=== PATIENT | female | born 1995 | race African-American/Black ===

== ENCOUNTER 2016-04-02 18:08 | Emergency (ER) | payer OTHER ==
[2016-04-02] MEDS ORDERED: LIDOCAINE 1% MDV 20ML VIAL As Ordered ONE (21:29)
[2016-04-02] MEDS ORDERED: ACETAMINOPH W/CODEINE #3 TAB UD As Ordered ONE (21:29)
--- NOTE | 2016-04-02 22:04 | EDDOCDS ---
Physician Documentation [facility] Name: Melissa Avina Age: 21 yrs Sex: Female : 1995 Arrival Date: 04/02/2016 Time: 18:08 Bed I6 / 28 Private MD: Other - Complete Info On Cds Disposition: 04/02/16 21:51 Discharged to Home/Self Care. Impression: Other bursitis of knee, left knee - WITH INFECTION. - Condition is Stable. - Discharge Instructions: Bursitis. - Medication Reconciliation, Local Pharmacy Hours form. - Follow up: Kaden Harris [facility]; When: Tomorrow; Reason: Recheck today's complaints, Continuance of care. - Problem is new. - Symptoms have improved. - Notes: CONTINUE WITH THE BACTRIM AND TRAMADOL, FOLLOW UP INSTRUCTED BY DR JOHNSON Historical: - Allergies: no known allergies; - Home Meds: 1. tramadol 50 mg Oral tab 1 tab 8 hours 2. Bactrim DS 800-160 mg Oral tab 1 tab every 12 hours - PMHx: none; - PSHx: none; - Social history: Smoking status: Patient states former smoker of tobacco. No barriers to communication noted, The patient speaks fluent Swiss. - Family history: Not pertinent. - : The pt / caregiver states he / she is not on anticoagulants. Home medication list is obtained from the patient. - Exposure Risk Screening:: None identified. 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 7 in. (170.18 cm) (R); Pain 10/10; 22:01 BP 120 / 75; Pulse 84; Resp 16; Temp 97.5; Pulse Ox 98% on R/A; jo3 18:09 Body Mass Index 25.06 (72.57 kg, 170.18 cm) gr2 MDM: 20:54 Financial registration complete. gjb 20:59 [facility] Payment Agreement was scanned into [employer] and attached to record. gjb 21:03 Lidocaine 10 mg/mL (1 %) 10 ml Infiltration once; to bedside ordered. ck7 21:03 Acetaminophen-Codeine 300 mg-30 mg 2 tabs PO once ordered. ck7 Administered Medications: 21:33 Drug: Lidocaine 10 ml [lidocaine 10 mg/mL (1 %) injection solution (10 mL)] Route: cf2 Infiltration; 21:34 Drug: Acetaminophen-Codeine 2 tabs [acetaminophen 300 mg-codeine 30 mg tablet (2 tabs)] cf2 Route: PO; Signatures: Dispatcher Med[employer] EDMS Alec Bo RN RN cz Malgorzata SalasRN RN jo3 Malgorzata Bennett,RN RN js13 Brad Hodgson, BEBE-C RPA-Cck7 Shahana Ascencio Christina RN cf2 The chart was reviewed and I authenticate all verbal orders and agree with the evaluation and treatment provided.Corrections: (The following items were deleted from the chart) 21:55 21:05 Wound Culture - Extremity+BRAD ordered. EDMS EDMS Attachments: 20:59 [facility] Payment Agreement [facility]
--- NOTE | 2016-04-02 22:04 | EDDOCDS ---
Nurse's Notes [facility] Name: Melissa Avina Age: 21 yrs Sex: Female : 1995 Arrival Date: 04/02/2016 Time: 18:08 Bed I6 / 28 Private MD: Sabrina - Complete Info On Cds Diagnosis: Other bursitis of knee, left knee-WITH INFECTION Presentation: 04/02 18:36 Presenting complaint: Patient states: Patient states she has pus and blood coming out js13 of her knee. Patient states she talked to her PA on post that said she might a skin infection. Adult Sepsis Screening: The patient does not have new or worsening altered mentation. Patient's respiratory rate is less than 22. Systolic blood pressure is greater than 100. Patient has a qSOFA score of 0- Negative Sepsis Screen. Suicide/Homicide risk assessment- the patient denies having any suicidal and/or homicidal ideations and does not present with any other emotional, behavioral or mental health complaints. 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 Transition of care: patient was not received from another setting of care. 18:36 Acuity: ANIYAH Level 3 js13 18:36 Method Of Arrival: Walkin/Carried/Asstd js13 Triage Assessment: 18:38 General: Appears uncomfortable, Behavior is appropriate for age, cooperative. Pain: js13 Location: left knee Pain currently is 10 out of 10 on a pain scale. Pt Declines HIV testing. Neurological: Level of Consciousness is awake, alert. Respiratory: No deficits noted. Airway is patent Respiratory effort is even, unlabored, Respiratory pattern is regular, symmetrical. Derm: Skin is pink, warm & dry. 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 tramadol 50 mg Oral tab 1 tab 8 hours 2. Bactrim DS 800-160 mg Oral tab 1 tab every 12 hours - PMHx: none; - PSHx: none; - Social history: Smoking status: Patient states former smoker of tobacco. No barriers to communication noted, The patient speaks fluent Saudi Arabian. - Family history: Not pertinent. - : The pt / caregiver states he / she is not on anticoagulants. Home medication list is obtained from the patient. - Exposure Risk Screening:: None identified. Screenin:16 Screening information is obtained from the patient. Fall risk: No risks identified. cz Assistance ADL's: requires no assistance with activities of daily living. Abuse/DV Screen: The patient / caregiver reports he/she is: not in a situation that causes fear, pain or injury. Nutritional screening: No deficits noted. Advance Directives: Currently, there is no health care proxy. There is no active DNR order. There is no living will. There is no Power of Set Up Inspector. Advance directive information has not previously been placed in an [facility] medical record. Further advance directive information is declined. home support is adequate. Assessment: 20:16 General: alert female with reddened area to left knee area marked and appears to be cz slightly improved since this a.m. center has small area of red drainage. 22:01 General: Appears in no apparent distress, comfortable, Behavior is appropriate for age, jo3 cooperative, pleasant. Neurological: Level of Consciousness is awake, alert, Oriented to person, place, time. Respiratory: Airway is patent Respiratory effort is even, unlabored. Derm: Skin is pink, warm & dry. normal. Vital Signs: 18:09 BP 131 / 80; Pulse 90; Resp 18 S; Temp 96.8(O); Pulse Ox 93% on R/A; Weight 72.57 kg gr2 (R); Height 5 ft. 7 in. (170.18 cm) (R); Pain 10/10; 22:01 BP 120 / 75; Pulse 84; Resp 16; Temp 97.5; Pulse Ox 98% on R/A; jo3 18:09 Body Mass Index 25.06 (72.57 kg, 170.18 cm) gr2 Vitals: 18:09 Log In Time: April 02, 2016 at 18:09. gr2 ED Course: 18:08 Patient visited by Rai Judge. gr2 18:08 Patient moved to Waiting gr2 18:09 Other - Complete Info On Cds is Private Physician. gr2 18:11 Patient visited by Rai Judge. gr2 18:11 Patient moved to Pre RCE gr2 18:37 Triage Initiated js13 18:39 Patient visited by Malgorzata Bennett RN. js13 20:11 [facility] ck7 20:11 Reji Flores DO is Attending Physician. ck7 20:11 Patient visited by Brad Hodgson RPA-C. ck7 20:11 Patient moved to Triage 3 cz 20:16 The patient / caregiver is instructed regarding the plan of care and ED course. cz 20:24 Olu Lindsey DO is Referral Physician. ck7 20:46 Patient visited by Brad Hodgson RPA-C. ck7 20:59 [facility] Payment Agreement was scanned into [employer] and attached to record. gjb 21:02 Patient moved to I2 / M2 cz 21:02 Patient moved to I6 / 28 cz 21:26 Patient visited by Brad Hodgson RPA-C. ck7 21:33 Cherri Quiles,MINNIE is Primary Nurse. cf2 21:51 Kaden [facility] is Referral Physician. ck7 22:01 No IV's were initiated during this patient's visit. No procedures done that require jo3 assistance. Administered Medications: 21:33 Drug: Lidocaine 10 ml [lidocaine 10 mg/mL (1 %) injection solution (10 mL)] Route: cf2 Infiltration; 21:34 Drug: Acetaminophen-Codeine 2 tabs [acetaminophen 300 mg-codeine 30 mg tablet (2 tabs)] cf2 Route: PO; Order Results: There are currently no results for this order. Outcome: 20:25 Discharge ordered by Provider. ck7 21:51 Discharge ordered by Provider. ck7 22:01 Discharge Assessment: Patient awake, alert and oriented x 3. No cognitive and/or jo3 functional deficits noted. Patient verbalized understanding of disposition instructions. patient administered narcotics - no. The following High Risk Discharge criteria are identified: None. Discharged to home ambulatory, with significant other. Condition: stable Condition: improved. Discharge instructions given to patient, Instructed on discharge instructions, follow up and referral plans. medication usage, Demonstrated understanding of instructions, medications, Pt was receptive of discharge instructions/ teaching. No special radiology studies were completed. Property sent home with patient. 22:03 Patient left the ED. jo3 Signatures: Alec Bo RN RN cz Malgorzata Salas RN RN jo3 Malgorzata Bennett RN RN js13 Brad Hodgson RPA-C [facility] Rai Judge gr2 Shahana Ascenciob Cherri Quiles,RN RN cf2 MTDD
--- NOTE | 2016-04-03 00:25 | ER ---
DATE: 04/02/2016 EMERGENCY ROOM CONSULTATION A 21-year-old female with a worsening history of left knee cellulitis and purulent discharge from the anterior knee. I was called for consult for prepatellar septic bursitis. Past medical history is noncontributory. On exam, she has a draining septic prepatellar bursitis. No other complaints. The area was cleaned, anesthetized and drained with a few mL of purulent drainage. It was irrigated copiously and a wet-to-dry dressing was placed. Followup plan is orthopedic clinic for continued care, likely wet-to-dry dressing changes, will also treat with Motrin, Bactrim, tramadol as necessary.
--- NOTE | 2016-04-04 23:03 | EDDOCDS ---
Physician Documentation [facility] Name: Melissa Avina Age: 21 yrs Sex: Female : 1995 Arrival Date: 04/02/2016 Time: 18:08 Bed I6 / 28 Private MD: Other - Complete Info On Cds Disposition: 04/02/16 21:51 Discharged to Home/Self Care. Impression: Other bursitis of knee, left knee - WITH INFECTION. - Condition is Stable. - Discharge Instructions: Bursitis. - Medication Reconciliation, Local Pharmacy Hours form. - Follow up: Kaden Harris [facility]; When: Tomorrow; Reason: Recheck today's complaints, Continuance of care. - Problem is new. - Symptoms have improved. - Notes: CONTINUE WITH THE BACTRIM AND TRAMADOL, FOLLOW UP INSTRUCTED BY DR JOHNSON Historical: - Allergies: no known allergies; - Home Meds: 1. tramadol 50 mg Oral tab 1 tab 8 hours 2. Bactrim DS 800-160 mg Oral tab 1 tab every 12 hours - PMHx: none; - PSHx: none; - Social history: Smoking status: Patient states former smoker of tobacco. No barriers to communication noted, The patient speaks fluent Armenian. - Family history: Not pertinent. - : The pt / caregiver states he / she is not on anticoagulants. Home medication list is obtained from the patient. - Exposure Risk Screening:: None identified. 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 7 in. (170.18 cm) (R); Pain 10/10; 22:01 BP 120 / 75; Pulse 84; Resp 16; Temp 97.5; Pulse Ox 98% on R/A; jo3 18:09 Body Mass Index 25.06 (72.57 kg, 170.18 cm) gr2 MDM: 20:54 Financial registration complete. gjb 20:59 [facility] Payment Agreement was scanned into [employer] and attached to record. gjb 21:03 Lidocaine 10 mg/mL (1 %) 10 ml Infiltration once; to bedside ordered. ck7 21:03 Acetaminophen-Codeine 300 mg-30 mg 2 tabs PO once ordered. ck7 04/03 10:52 T-Sheet-- Draft Copy was scanned into [employer] and attached to record. gb Administered Medications: 04/02 21:33 Drug: Lidocaine 10 ml [lidocaine 10 mg/mL (1 %) injection solution (10 mL)] Route: cf2 Infiltration; 21:34 Drug: Acetaminophen-Codeine 2 tabs [acetaminophen 300 mg-codeine 30 mg tablet (2 tabs)] cf2 Route: PO; Signatures: Dispatcher MedHost EDMS Alec Bo, RN RN Leona Tovar, Rony Reg Malgorzata Tesfaye RN RN jo3 Malgorzata Bennett RN RN js13 Brad Hodgson, RPA-C RPA-Cck7 Shahana Ascencio b Cherri Quiles RN cf2 The chart was reviewed and I authenticate all verbal orders and agree with the evaluation and treatment provided.Corrections: (The following items were deleted from the chart) 21:55 21:05 Wound Culture - Extremity+BRAD ordered. EDMS EDMS Attachments: 20:59 [facility] [place] Payment Agreement gjb 04/03 10:52 T-Sheet-- Draft Copy Chart Complete MTDD
--- NOTE | 2016-04-04 23:04 | EDDOCDS ---
Physician Documentation [facility] Name: Melissa Avina Age: 21 yrs Sex: Female : 1995 Arrival Date: 04/02/2016 Time: 18:08 Bed I6 / 28 Private MD: Other - Complete Info On Cds Disposition: 04/02/16 21:51 Discharged to Home/Self Care. Impression: Other bursitis of knee, left knee - WITH INFECTION. - Condition is Stable. - Discharge Instructions: Bursitis. - Medication Reconciliation, Local Pharmacy Hours form. - Follow up: Kaden [facility]; When: Tomorrow; Reason: Recheck today's complaints, Continuance of care. - Problem is new. - Symptoms have improved. - Notes: CONTINUE WITH THE BACTRIM AND TRAMADOL, FOLLOW UP INSTRUCTED BY DR JOHNSON Historical: - Allergies: no known allergies; - Home Meds: 1. tramadol 50 mg Oral tab 1 tab 8 hours 2. Bactrim DS 800-160 mg Oral tab 1 tab every 12 hours - PMHx: none; - PSHx: none; - Social history: Smoking status: Patient states former smoker of tobacco. No barriers to communication noted, The patient speaks fluent Austrian. - Family history: Not pertinent. - : The pt / caregiver states he / she is not on anticoagulants. Home medication list is obtained from the patient. - Exposure Risk Screening:: None identified. 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 7 in. (170.18 cm) (R); Pain 10/10; 22:01 BP 120 / 75; Pulse 84; Resp 16; Temp 97.5; Pulse Ox 98% on R/A; jo3 18:09 Body Mass Index 25.06 (72.57 kg, 170.18 cm) gr2 MDM: 20:54 Financial registration complete. gjb 20:59 [facility] Payment Agreement was scanned into [email or web address] and attached to record. gjb 21:03 Lidocaine 10 mg/mL (1 %) 10 ml Infiltration once; to bedside ordered. ck7 21:03 Acetaminophen-Codeine 300 mg-30 mg 2 tabs PO once ordered. ck7 04/03 10:52 T-Sheet-- Draft Copy was scanned into [email or web address] and attached to record. gb Administered Medications: 04/02 21:33 Drug: Lidocaine 10 ml [lidocaine 10 mg/mL (1 %) injection solution (10 mL)] Route: cf2 Infiltration; 21:34 Drug: Acetaminophen-Codeine 2 tabs [acetaminophen 300 mg-codeine 30 mg tablet (2 tabs)] cf2 Route: PO; Signatures: Dispatcher MedHost EDMS Alec Bo, RN RN Leona Tovar, Rony Reg Malgorzata Tesfaye RN RN jo3 Malgorzata Bennett RN RN js13 Brad Hodgson, RPA-C RPA-Cck7 Shahana Ascencio b Cherri Quiles RN cf2 The chart was reviewed and I authenticate all verbal orders and agree with the evaluation and treatment provided.Corrections: (The following items were deleted from the chart) 21:55 21:05 Wound Culture - Extremity+BRAD ordered. EDMS EDMS Attachments: 20:59 [facility] [place] gjb 04/03 10:52 T-Sheet-- Draft Copy Chart Complete MTDD
--- NOTE | 2016-04-04 23:04 | EDDOCDS ---
Nurse's Notes [facility] Name: Melissa Avina Age: 21 yrs Sex: Female : 1995 Arrival Date: 04/02/2016 Time: 18:08 Bed I6 / 28 Private MD: Sabrina - Complete Info On Cds Diagnosis: Other bursitis of knee, left knee-WITH INFECTION Presentation: 04/02 18:36 Presenting complaint: Patient states: Patient states she has pus and blood coming out js13 of her knee. Patient states she talked to her PA on post that said she might a skin infection. Adult Sepsis Screening: The patient does not have new or worsening altered mentation. Patient's respiratory rate is less than 22. Systolic blood pressure is greater than 100. Patient has a qSOFA score of 0- Negative Sepsis Screen. Suicide/Homicide risk assessment- the patient denies having any suicidal and/or homicidal ideations and does not present with any other emotional, behavioral or mental health complaints. 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 Transition of care: patient was not received from another setting of care. 18:36 Acuity: ANIYAH Level 3 js13 18:36 Method Of Arrival: Walkin/Carried/Asstd js13 Triage Assessment: 18:38 General: Appears uncomfortable, Behavior is appropriate for age, cooperative. Pain: js13 Location: left knee Pain currently is 10 out of 10 on a pain scale. Pt Declines HIV testing. Neurological: Level of Consciousness is awake, alert. Respiratory: No deficits noted. Airway is patent Respiratory effort is even, unlabored, Respiratory pattern is regular, symmetrical. Derm: Skin is pink, warm & dry. SEAMAN: 18:38 LMP 03/13/2016 js13 Historical: - Allergies: no known allergies; - Home Meds: 1. tramadol 50 mg Oral tab 1 tab 8 hours 2. Bactrim DS 800-160 mg Oral tab 1 tab every 12 hours - PMHx: none; - PSHx: none; - Social history: Smoking status: Patient states former smoker of tobacco. No barriers to communication noted, The patient speaks fluent Moldovan. - Family history: Not pertinent. - : The pt / caregiver states he / she is not on anticoagulants. Home medication list is obtained from the patient. - Exposure Risk Screening:: None identified. Screenin:16 Screening information is obtained from the patient. Fall risk: No risks identified. cz Assistance ADL's: requires no assistance with activities of daily living. Abuse/DV Screen: The patient / caregiver reports he/she is: not in a situation that causes fear, pain or injury. Nutritional screening: No deficits noted. Advance Directives: Currently, there is no health care proxy. There is no active DNR order. There is no living will. There is no Power of Information Technology Project Manager. Advance directive information has not previously been placed in an [facility] medical record. Further advance directive information is declined. home support is adequate. Assessment: 20:16 General: alert female with reddened area to left knee area marked and appears to be cz slightly improved since this a.m. center has small area of red drainage. 22:01 General: Appears in no apparent distress, comfortable, Behavior is appropriate for age, jo3 cooperative, pleasant. Neurological: Level of Consciousness is awake, alert, Oriented to person, place, time. Respiratory: Airway is patent Respiratory effort is even, unlabored. Derm: Skin is pink, warm & dry. normal. Vital Signs: 18:09 BP 131 / 80; Pulse 90; Resp 18 S; Temp 96.8(O); Pulse Ox 93% on R/A; Weight 72.57 kg gr2 (R); Height 5 ft. 7 in. (170.18 cm) (R); Pain 10/10; 22:01 BP 120 / 75; Pulse 84; Resp 16; Temp 97.5; Pulse Ox 98% on R/A; jo3 18:09 Body Mass Index 25.06 (72.57 kg, 170.18 cm) gr2 Vitals: 18:09 Log In Time: April 02, 2016 at 18:09. gr2 ED Course: 18:08 Patient visited by Rai Judge. gr2 18:08 Patient moved to Waiting gr2 18:09 Other - Complete Info On Cds is Private Physician. gr2 18:11 Patient visited by Rai Judge. gr2 18:11 Patient moved to Pre RCE gr2 18:37 Triage Initiated js13 18:39 Patient visited by Malgorzata Bennett RN. js13 20:11 Brad Hodgson RPA-C [facility] ck7 20:11 Reji Flores DO is Attending Physician. ck7 20:11 Patient visited by Brad Hodgson RPA-C. ck7 20:11 Patient moved to Triage 3 cz 20:16 The patient / caregiver is instructed regarding the plan of care and ED course. cz 20:24 Olu Lindsey DO is Referral Physician. ck7 20:46 Patient visited by Brad Hodgson RPA-C. ck7 20:59 [facility] Payment Agreement was scanned into [employer] and attached to record. gjb 21:02 Patient moved to I2 / M2 cz 21:02 Patient moved to I6 / 28 cz 21:26 Patient visited by Brad Hodgson RPA-C. ck7 21:33 Cherri Quiles,MINNIE is Primary Nurse. cf2 21:51 Kaden Harris [facility] is Referral Physician. ck7 22:01 No IV's were initiated during this patient's visit. No procedures done that require jo3 assistance. 04/03 10:52 T-Sheet-- Draft Copy was scanned into [employer] and attached to record. gb Administered Medications: 04/02 21:33 Drug: Lidocaine 10 ml [lidocaine 10 mg/mL (1 %) injection solution (10 mL)] Route: cf2 Infiltration; 21:34 Drug: Acetaminophen-Codeine 2 tabs [acetaminophen 300 mg-codeine 30 mg tablet (2 tabs)] cf2 Route: PO; Order Results: There are currently no results for this order. Outcome: 20:25 Discharge ordered by Provider. ck7 21:51 Discharge ordered by Provider. ck7 22:01 Discharge Assessment: Patient awake, alert and oriented x 3. No cognitive and/or jo3 functional deficits noted. Patient verbalized understanding of disposition instructions. patient administered narcotics - no. The following High Risk Discharge criteria are identified: None. Discharged to home ambulatory, with significant other. Condition: stable Condition: improved. Discharge instructions given to patient, Instructed on discharge instructions, follow up and referral plans. medication usage, Demonstrated understanding of instructions, medications, Pt was receptive of discharge instructions/ teaching. No special radiology studies were completed. Property sent home with patient. 22:03 Patient left the ED. jo3 Signatures: Alec Bo RN RN cz Leona Huizar, Rony Reg Malgorzata Tesfaye RN RN jo3 Malgorzata Bennett,RN RN js13 Brad Hodgson, RPA-C RPA-Cck7 Rai Judge2 Shahana Ascencio Christina,RN RN cf2 Chart Complete MTDD
== END 2016-04-02 22:03 | disposition home or self-care (01) ==
LOC: M ED 18:08
DX: M70.52 Other bursitis of knee, left knee (principal); Z87.891 Personal history of nicotine dependence

== ENCOUNTER 2016-06-02 13:20 | Emergency (ER) | payer OTHER ==
[~2016-06-02] VITALS: Ht 170.2 cm; Wt 75.3 kg
[2016-06-02] MEDS ORDERED: METOCLOPRAMIDE 10 MG TAB PO ONE (14:45)
[2016-06-02] MEDS ORDERED: KETOROLAC 60 MG/2 ML VIAL (J1885) IM ONE (14:45)
[2016-06-02 15:53] VITALS: BP 111/67
--- NOTE | 2016-06-02 16:11 | REP ---
CT brain without contrast: History: Trauma. Findings: Preliminary digital bolt loader radiograph is unremarkable. No significant scalp hematoma is seen. Bone window settings demonstrate no evidence of skull fracture or bony destructive lesion. The visualized paranasal sinuses are clear. On soft tissue window settings, the lateral, third, and fourth ventricles are normal in size and position. Lai-white differentiation pattern is normal above and below the tentorium. There is no evidence of intracranial hemorrhage. No extra-axial fluid collection is seen. No mass, edema, or midline shift is seen. There is no evidence of infarct. Impression: Negative noncontrast brain CT. Signed by Julio Stanford MD 06/02/2016 04:20 P
[2016-06-02] MEDS ORDERED: ONDANSETRON 4 MG ORAL DISINTEGRATING TAB (S0181) PO ONE (16:15)
[2016-06-02] MEDS ORDERED: traMADol 50 MG TAB PO ONE (16:15)
== END 2016-06-02 16:55 | disposition home or self-care (01) ==
LOC: M ED 14:49
DX: S06.0X0A Concussion without loss of consciousness, initial encounter (principal); V49.20XA Unspecified car occupant injured in collision with unspecified motor vehicles in nontraffic accident, initial encounter; Y92.410 Unspecified street and highway as the place of occurrence of the external cause; Y93.89 Activity, other specified; Y99.9 Unspecified external cause status
CPT/HCPCS: 70450; 96372; 99282; J1885